=== PATIENT | male | born 1980 | race Two or more races ===

== ENCOUNTER 2018-02-17 12:50 | Emergency (ER) | payer MEDICAID ==
[~2018-02-17] VITALS: Ht 175.3 cm; Wt 73.0 kg
[2018-02-17 12:55] VITALS: BP 131/79
[2018-02-17] MEDS ORDERED: ACETAMINOPHEN ES 500 MG TABLET ONE (13:29)
[2018-02-17] MEDS ORDERED: ACETAMINOPHEN 325 MG TABLET PO ONE (13:30)
--- NOTE | 2018-02-17 13:40 | NUR ---
RADIOLOGY AT BEDSIDE FOR L ANKLE XRAY. Addendum: 02/17/18 at 1346 by ORELATIVO R ANKLE XRAY INSTEAD OF LEFT.
== END 2018-02-17 14:24 | disposition home or self-care (01) ==
LOC: ER 12:52
DX: S93.491A Sprain of other ligament of right ankle, initial encounter (principal); F10.10 Alcohol abuse, uncomplicated; F12.10 Cannabis abuse, uncomplicated; Y90.9 Presence of alcohol in blood, level not specified; W01.0XXA Fall on same level from slipping, tripping and stumbling without subsequent striking against object, initial encounter; Y93.01 Activity, walking, marching and hiking; Y92.89 Other specified places as the place of occurrence of the external cause; Y99.8 Other external cause status
CPT/HCPCS: 29515; 73610; 99283; A4606; Z7610